=== PATIENT | male | born 1965 | race Caucasian/White ===

== ENCOUNTER → 2016-06-15 | Outpatient (CLI) | payer OTHER ==
[~2016-06-15] MED LIST: NAPR500 PO
[2016-06-15 07:17] LABS: HEMATOCRIT 45.5 % (39.0-51.0); MEAN CELL VOLUME 87.3 FL (80.0-100.0); MEAN CORPUSCULAR HEMOGLOBIN 29.5 PG (27.0-34.0); MEAN CORPUSCULAR HGB CONC 33.9 % (32.0-36.0); PLATELET COUNT 325 TH/MM3 (150-450); RED BLOOD COUNT 5.21 MIL/MM3 (4.50-5.90); RED CELL DISTRIBUTION WIDTH 13.3 % (11.6-17.2); REVIEW FLAG FINAL; WHITE BLOOD COUNT 9.2 TH/MM3 (4.0-11.0)
[2016-06-15 07:44] LABS: BICARBONATE 26.5 MEQ/L (21.0-32.0); HDL CHOLESTEROL 43.1 MG/DL (40.0-60.0); INDIRECT BILIRUBIN 0.2 MG/DL (0.0-0.8); POTASSIUM 3.8 MEQ/L (3.5-5.1); TOTAL BILIRUBIN ADULT 0.3 MG/DL (0.2-1.0)
== END ==
LOC: CLAB 06:55
PROVIDERS: ATTEND Family Medicine
DX: E78.9 Disorder of lipoprotein metabolism, unspecified (principal); I10 Essential (primary) hypertension; N41.9 Inflammatory disease of prostate, unspecified; Z79.899 Other long term (current) drug therapy
CPT/HCPCS: 36415; 80048; 80061; 80076; 84153; 85027

== ENCOUNTER 2017-01-05 07:31 | Emergency (ER) | payer OTHER ==
[~2017-01-05] VITALS: Ht 172.7 cm; Wt 85.0 kg
[2017-01-05 07:31] VITALS: BP 184/95; PULSE 69; RESP 16; TEMP 98.5; O2SAT 98
[2017-01-05] MEDS ORDERED: IBUPROFEN 800 MG TAB PO ONE (07:45)
[2017-01-05] MEDS ORDERED: IBUP800T23 PO (07:45)
--- NOTE | 2017-01-05 07:46 | PD ---
HPI Chief Complaint: Injury Time Seen by Provider: 07:38 Travel History International Travel<30 days: No Contact w/Intl Traveler<30days: No Traveled to known affect area: No History of Present Illness HPI 51-year-old male presents to the emergency Department with complaint of right third, fourth, and right foot pain after accidentally kicking a door last night. Denies paresthesias, loss of sensation to the affected extremity. Has been ambulatory on the affected foot. Took prescribed hydrocodone last night for symptom management. Has not tried any other treatments to alleviate his symptoms. Pain is aggravated with walking, palpation, movement of the foot. Has no other medical complaints. Symptoms are mild in severity. No known allergies. No other modifying factors or associated signs and symptoms. PFSH Past Medical History Diminished Hearing: No Hypertension: Yes Musculoskeletal: Yes (chronic low back pain) Past Surgical History Other Surgery: Yes (back surgery) Social History Alcohol Use: No Tobacco Use: No Substance Use: No Allergies-Medications (Allergen,Severity, Reaction): Coded Allergies: No Known Allergies (Verified , 01/05/17) Reported Meds & Prescriptions Reported Meds & Active Scripts Active Ibuprofen 800 Mg Tab 800 Mg PO Q6HR PRN Naprosyn (Naproxen) 500 Mg Tab 500 Mg PO Q12HR PRN Review of Systems Except as stated in HPI: all other systems reviewed are Neg Physical Exam Narrative GENERAL: Well-nourished, well-developed male patient, in no acute distress SKIN: Warm and dry. HEAD: Atraumatic. Normocephalic. EYES: Pupils equal and round. No scleral icterus. No injection or drainage. ENT: Mucosa pink and moist. Airway patent. NECK: Trachea midline. CARDIOVASCULAR: Regular rate. RESPIRATORY: No accessory muscle use. GASTROINTESTINAL: Flat. MUSCULOSKELETAL: Right foot without erythema, edema, ecchymosis; tenderness on palpation to the right third and fourth toes and to the metatarsal region; no obvious deformity; sensory intact; Refill within normal limits. Right lower extremity supple and non-tense with 2+ pedal pulses and sensory intact and without erythema or edema. No obvious deformities. No clubbing. No cyanosis. No edema. NEUROLOGICAL: Awake and alert. Oriented 3. No obvious cranial nerve deficits. Motor grossly within normal limits. Normal speech. PSYCHIATRIC: Appropriate mood and affect; insight and judgment normal. Data Data Last Documented VS Vital Signs Date Time Temp Pulse Resp B/P (MAP) Pulse Ox O2 Delivery O2 Flow Rate FiO2 01/05/17 07:31 98.5 69 16 184/95 (124) 98 Room Air Orders Orders Foot, Complete ([id number]) (01/05/17 07:38) Ibuprofen (Motrin) (01/05/17 07:45) Splint Or Brace Apply/Monitor (01/05/17 09:22) Crutches (01/05/17 09:22) MDM Medical Decision Making Medical Screen Exam Complete: Yes Emergency Medical Condition: Yes Medical Record Reviewed: Yes Differential Diagnosis Toe fracture, foot fracture, foot contusion, foot sprain, toe sprain Narrative Course 51-year-old male with right foot injury. Ibuprofen administered in the ER. Right foot x-ray ordered. 924: Right foot x-ray concludes: Nondisplaced fracture proximal phalanx third toe in anatomic alignment. Third and fourth toe berenice taped together. Postop shoe and crutches provided for support. Ibuprofen prescribed for home. Instructed patient to follow up with primary care provider. Patient verbalizes understanding and agreement with treatment plan. Patient is medically cleared and stable for discharge. Discussed reasons to return to the emergency department. Patient agrees with treatment plan. The patients vital signs are stable and the patient is stable for outpatient follow-up and treatment. Patient discharged home, stable and in no acute distress. Diagnosis Primary Impression: Fracture of third toe, right, closed Qualified Codes: S92.501A - Displaced unspecified fracture of right lesser toe (s), initial encounter for closed fracture Referrals: Primary Care Physician Patient Instructions: Crutch Instructions (ED), General Instructions, Toe Fracture (ED) Additional Instructions: Tylenol or ibuprofen as directed and as needed for pain and inflammation Rest, ice, compress, and elevate extremity to decrease pain and inflammation Crutches for support Berenice tape affected toe and next toe together for support Postop shoe for support Avoid aggravating activity; increase activity as tolerated Follow-up with primary care provider Return to the emergency department immediately with worsening of symptoms Med/Other Pt SpecificInfo: Prescription(s) given Scripts Ibuprofen (Ibuprofen) 800 Mg Tab 800 MG PO Q6HR Y for PAIN, #30 TAB 0 Refills Prov: Gloria Waters 01/05/17 Disposition: 01 DISCHARGE HOME Condition: Stable Gloria Waters Jan 05, 2017 07:46
--- NOTE | 2017-01-05 09:17 | RADRPT ---
EXAM DATE/TIME: 01/05/2017 08:03 [facility] COMPARISON: No previous studies available for comparison. INDICATIONS : Kicked door, pain 3rd toe. MEDICAL HISTORY : None. SURGICAL HISTORY : None. ENCOUNTER: Initial ACUITY: 2 days PAIN SCORE: 9/10 LOCATION: Right foot FINDINGS: Nondisplaced fracture proximal phalanx third toe in anatomic alignment. CONCLUSION: Nondisplaced fracture as described above. Wily Sun MD FACR on January 05, 2017 at 9:15 Board Certified Radiologist. This report was verified electronically.
== END 2017-01-05 09:33 | disposition home or self-care (01) ==
LOC: NEPK 07:31
DX: S92.501A Displaced unspecified fracture of right lesser toe(s), initial encounter for closed fracture (principal); W22.09XA Striking against other stationary object, initial encounter; I10 Essential (primary) hypertension
CPT/HCPCS: 73630; 99283; E0113; L3260